=== PATIENT | male | born 1985 | race Caucasian/White ===

== ENCOUNTER 2017-07-25 15:38 | Emergency (ER) | payer MEDICAID ==
[~2017-07-25] VITALS: Ht 180.3 cm; Wt 74.8 kg
[2017-07-25 15:45] VITALS: BP 165/92
--- NOTE | 2017-07-25 16:00 | NUR ---
PATIENT BIBA; FOUND SITTING IN HIS CAR WITH BOTTLE OF VODKA/ FEELING DEPRESSED.FOUND BY BYSTANDERS AND CALLED 911. [place] [facility] AT BEDSIDE. BS FIELD 82,BP 159/108 ,GCS 14,HR 100 FIELD. HX: DM,HTN.,ANXIETY. NO DRUGS INVOLVED PER PD .DENIES N/V/D; SKIN IS PINK/WARM/DRY; AAOX4 WITH EVEN AND STEADY GAIT; LUNGS CLEAR BL; HR EVEN AND REGULAR; PT DENIES ANY FEVER, CP, SOB, OR COUGH AT THIS TIME; PATIENT STATES PAIN OF 0/10 AT THIS TIME;PATIENT POSITIONED FOR COMFORT; HOB ELEVATED; BEDRAILS UP X2; BED DOWN. ALL MONITORS IN PLACED;ER MD MADE AWARE OF PT STATUS.
[2017-07-25] MEDS ORDERED: NACL 0.9% 2,000 ML IV ONE (16:25)
[2017-07-25 16:58] LABS: BASOPHILS # (AUTO) 0.4 K/uL (0.00-0.22); EOSINOPHILS # (AUTO) 0.1 K/uL (0-0.4); HEMATOCRIT 39.3 % (36-52); HEMOGLOBIN 13.1 g/dL (12.0-18.0); LYMPHOCYTES # (AUTO) 1.1 K/uL (2.0-11.5); MEAN CORPUSCULAR HEMOGLOBIN 34 pg (27-31); MEAN CORPUSCULAR HGB CONC 33 g/dL (33-37); MEAN CORPUSCULAR VOLUME 102 fL (80-94); MONOCYTES # (AUTO) 0.7 K/uL (0.8-1.0); NEUTROPHILS # (AUTO) 3.9 K/uL (1.8-7.7); PLATELET COUNT (AUTO) 233 K/uL (140-450); RED BLOOD CELL COUNT(AUTO) 3.83 MIL/uL (4.20-6.10); RED CELL DISTRIBUTION WIDTH 14.3 % (11.6-13.7); WHITE BLOOD COUNT (AUTO) 6.2 K/uL (4.8-10.8)
[2017-07-25 17:16] LABS: ALBUMIN 3.7 g/dL (3.4-5.0); ANION GAP 16.1 (8-16); CARBON DIOXIDE 26.1 mmol/L (21-32); CREATININE 0.8 mg/dL (0.7-1.3); POTASSIUM 3.2 mmol/L (3.5-5.1); TOTAL BILIRUBIN 0.2 mg/dL (0.0-1.0)
--- NOTE | 2017-07-25 17:45 | NUR ---
PT RESTING ON BED;NO ACUTE DISTRESS NOTED;WILL CONTINUE TO MONIOTR PT.
[2017-07-25 19:08] VITALS: BP 146/96
--- NOTE | 2017-07-25 19:08 | NUR ---
Patient discharged with v/s stable. Written and verbal after care instructions given and explained. Patient verbalized understanding. Ambulatory with steady gait. All questions addressed prior to discharge. Advised to follow up with PMD.
[2017-07-25 19:29] LABS: BARBITURATE, URINE NEG. ng/ml (NEG <=200); BENZODIAZEPINE, URINE POS. ng/mL (NEG <=200); CANNABINOID, URINE POS. ng/mL (NEG <=50); COCAINE, URINE NEG. ng/mL (NEG <=300); OPIATE, URINE NEG. ng/mL (NEG <=2000); PHENCYCLIDINE SCREEN,URINE NEG. ng/mL (NEG <=25)
== END 2017-07-25 19:08 | disposition home or self-care (01) ==
LOC: MED 15:38
DX: F10.129 Alcohol abuse with intoxication, unspecified (principal); I10 Essential (primary) hypertension
CPT/HCPCS: 36415; 80053; 80305; 82948; 83690; 85025; 96360; 96361; 99285; G0482; J7030

== ENCOUNTER 2017-08-07 14:33 | Emergency (ER) | payer MEDICAID ==
[~2017-08-07] VITALS: Ht 177.8 cm; Wt 81.6 kg
--- NOTE | 2017-08-07 14:44 | NUR ---
Patient ambulated to bed 06.
--- NOTE | 2017-08-07 14:45 | NUR ---
BIB AUNT WITH C/O SHAKINESS FROM ETOH WITHRAWAL; LAST ALCOHOL YESTERDAY; CONSUMED 6+ BOTTLE OF VODKA. HX; DENIES. RX; DENIES. DENIES N/V/D; SKIN IS PINK/WARM/DRY; AAOX4 WITH EVEN AND STEADY GAIT; LUNGS CLEAR BL; PT DENIES ANY FEVER, CP, SOB, OR COUGH AT THIS TIME; PATIENT STATES PAIN OF 0/10 AT THIS TIME; PATIENT POSITIONED FOR COMFORT; HOB ELEVATED; BEDRAILS UP X2; BED DOWN. ER MD MADE AWARE OF PT STATUS.
[2017-08-07 14:47] VITALS: BP 195/118
--- NOTE | 2017-08-07 16:03 | NUR ---
Patient appears to be resting comfortably in bed. BP 184/105; DENIES HEADACHE AT THIS TIME, NOTIFIED MD. Respirations even and unlabored.WILL CONTINUE TO MONITOR.
--- NOTE | 2017-08-07 16:17 | NUR ---
Dr. Segura evaluating patient at bedside.
--- NOTE | 2017-08-07 16:30 | NUR ---
Patient discharged with BP 184/105; DENIES HEADACHE AT THIS TIME; MD MADE AWARE. Written and verbal after care instructions given and explained. Patient alert, oriented and verbalized understanding of instructions. Ambulatory with steady gait. All questions addressed prior to discharge. ID band removed. Patient advised to follow up with PMD. Rx of LIBRIUM given. Patient educated on indication of medication including possible reaction and side effects. Opportunity to ask questions provided and answered.
[2017-08-07 16:33] VITALS: BP 184/105
== END 2017-08-07 16:30 | disposition home or self-care (01) ==
LOC: MED 14:33
DX: F10.239 Alcohol dependence with withdrawal, unspecified (principal); I10 Essential (primary) hypertension; F12.10 Cannabis abuse, uncomplicated
CPT/HCPCS: 81002; 99283

== ENCOUNTER 2022-05-06 13:09 | Emergency (ER) | payer OTHER ==
--- NOTE | 2022-05-06 13:14 | NUR ---
CALLED TO TRIAGE, NO ANSWER IN LOBBY OR OUTSIDE
--- NOTE | 2022-05-06 13:32 | NUR ---
SECOND CALL TO TRIAGE, NO ANSWER IN LOBBY OR OUTSIDE
--- NOTE | 2022-05-06 13:51 | NUR ---
PATIENT LEFT WITHOUT BEING SEEN BY DR. PATE. NO FURTHER CARE PROVIDED FOR PATIENT.
== END 2022-05-06 13:14 | disposition left against medical advice (07) ==
LOC: MED 13:09
DX: R51.9 Headache, unspecified (principal); Z53.21 Procedure and treatment not carried out due to patient leaving prior to being seen by health care provider